=== PATIENT | male | born 1935 ===

== ENCOUNTER 2019-06-08 11:28 | Observation (INO) ==
--- NOTE | 2019-05-25 16:38 | PAT Medication Instructions ---
Medication Instructions Date of Service May 25, 2019 Home Medications Medications digoxin 125 mcg (0.125 mg) tablet 125 mcg PO QPM isosorbide dinitrate 30 mg tablet 30 mg PO QAM losartan 100 mg tablet 100 mg PO QAM lutein 20 mg tablet 20 mg PO QAM nitroglycerin 0.4 mg sublingual tablet 0.4 mg SL Q5M PRN rosuvastatin 5 mg sprinkle capsule 5 mg PO Q OTHER DAY vitamins A,C,J-kafu-arnugf 14,320 unit-226 mg-200 unit capsule 1 cap PO BID warfarin 5 mg tablet 5 mg PO UD finasteride 5 mg PO QAM metoprolol tartrate 50 mg PO BID Continue as directed rosuvastatin 5 mg sprinkle capsule 5 mg PO Q OTHER DAY nitroglycerin 0.4 mg sublingual tablet 0.4 mg SL Q5M PRN ASK your prescriber and surgeon warfarin 5 mg tablet 5 mg PO UD STOP taking 2 weeks before surgery vitamins A,C,Z-zcwh-umgmhr 14,320 unit-226 mg-200 unit capsule 1 cap PO BID lutein 20 mg tablet 20 mg PO QAM DO NOT take the morning of surgery losartan 100 mg tablet 100 mg PO QAM Take morning of surgery With a small sip of water, OTHERWISE NOTHING TO EAT OR DRINK AFTER MIDNIGHT: metoprolol tartrate 50 mg PO BID finasteride 5 mg PO QAM isosorbide dinitrate 30 mg tablet 30 mg PO QAM Take evening before surgery metoprolol tartrate 50 mg PO BID digoxin 125 mcg (0.125 mg) tablet 125 mcg PO QPM Other Notes If you have any questions please call us at [phone] or [phone] or [phone] or [phone]
--- NOTE | 2019-05-26 12:24 | Anesthesiology Consultation ---
Date of Service May 26, 2019 Assessment & Plan (1) Encounter for pre-operative examination: Chart Review Chart Review: Acceptable Risk for Surgery (pending cardio clearance and stress test ) and Patient seen in Pre Admission Testing Patient scheduled for stress test 05/27/19. Will get results and obtain cardio clearance (pt seen by cardio 05/19/19) prior to surgery Teaching & Discussion Pre-Anesthesia Teaching/Discussion Notes: Instructed NPO after midnight before surgery,except medications with 15 cc of water. Medication instructions provided according to the PAT guidelines. History Surgery Operation Date: 06/08/19 07:15 Proposed Procedures p Transurethral Resection of the Prostate - Jonatan Alonso MD Height/Weight Height: 5 ft 6 in Weight: 83.6 kg Allergies Allergy/AdvReac Type Severity Reaction Status Date / Time No Known Allergies Allergy Verified 05/12/19 15:33 Medications Home Medications Medication Instructions Recorded Confirmed Last Taken digoxin 125 mcg (0.125 mg) tablet 125 mcg PO QPM 05/08/19 05/12/19 Unknown isosorbide dinitrate 30 mg tablet 30 mg PO QAM 05/08/19 05/12/19 Unknown losartan 100 mg tablet 100 mg PO QAM 05/08/19 05/12/19 Unknown lutein 20 mg tablet 20 mg PO QAM 05/08/19 05/12/19 Unknown nitroglycerin 0.4 mg sublingual 0.4 mg SL Q5M PRN 05/08/19 05/12/19 Unknown tablet rosuvastatin 5 mg sprinkle capsule 5 mg PO Q OTHER DAY 05/08/19 05/12/19 Unknown vitamins A,C,N-xcqk-hqeeyg 14,320 1 cap PO BID 05/08/19 05/12/19 Unknown unit-226 mg-200 unit capsule warfarin 5 mg tablet 5 mg PO UD 05/08/19 05/12/19 Unknown finasteride 5 mg PO QAM 05/12/19 05/12/19 Unknown metoprolol tartrate 50 mg PO BID 05/12/19 05/12/19 Unknown Past Medical History Medical History (Updated 05/26/19 @ 12:43 by Annette Valdez PA-C) Atrial fibrillation DX 2007 - ON WARFARIN - FOLLOWS W/ DR. NGUYEN - STABLE BPH (benign prostatic hyperplasia) Chronic back pain [place] (hard of hearing) Hyperlipidemia Hypertension On anticoagulant therapy Osteoarthritis Poor historian Exercise / Class Metabolic Activity III < 4 Walking/Shop/Light housework (one flight of stairs - mild SOB, no chest pain) Past Surgical History Surgical History History of ankle surgery LEFT History of cardiac cath YEARS AGO - [facility] - NO STENTS History of cataract surgery History of colonoscopy History of hernia repair History of left knee surgery History of surgery on left wrist History of surgery on right wrist History of tooth extraction History of transurethral resection of prostate Past Anesthesia History No Hx of Anesthesia Complications and No Family Hx of Anesthesia Complications History of PONV No Hx of PONV and No Hx of Motion Sickness Social History Smoking Status: Never smoker Do You Dip or Chew Tobacco: No Hx Alcohol Use: No Hx Substance Use: No substance use type: does not use Review of Systems Mild CARRILLO- stable and controlled Mild snoring - no witnessed apnea Patient denies chest pain, shortness of breath at rest, reflux, cough, wheezing, palpitations. No hx of seizures, stroke, [place]. No hx of blood clots or blood transfusions No recent steroid use Physical Exam Vital Signs VITALS BP 175/92 P 62 TEMP 98.0 SP02 94% RESP 16 Constitutional no acute distress ENMT Mouth: no TMJ clicking Thyromental Distance: > or= 3.5 Finger Breadths (3.5) Mallampati Class: III Partial top denture Bottom molars missing Neck + limited neck extension (moderately ) Respiratory normal respiratory effort; no respiratory distress Auscultation: lungs clear to auscultation bilaterally; no wheezes Cardiovascular Heart Sounds: no murmur Vessels: no carotid bruit Irregularly irregular Musculoskeletal Spine: no pain with cervical ROM Neurologic moves all extremities Mild 1-2+ edema to bilateral LEs L>R (chronic for patient and improved per patient) Psychiatric Orientation: alert Testing Laboratory Results 05/26/19 12:32 05/26/19 12:32 Urine Color Dark Yellow 05/26/19 12:32 Urine Appearance Clear (Clear) 05/26/19 12:32 Urine pH 7.0 (4.5-7.5) 05/26/19 12:32 Ur Specific [place] 1.019 (1.000-1.030) 05/26/19 12:32 Urine Protein 1+ (Negative) H 02/11/20 12:32 Urine Glucose (UA) Negative (Negative) 05/26/19 12:32 Urine Ketones Negative (Negative) 05/26/19 12:32 Urine Nitrite Negative (Negative) 05/26/19 12:32 Ur Leukocyte Esterase Negative (Negative) 05/26/19 12:32 Urine WBC (Auto) 0 /hpf (0-5) 05/26/19 12:32 Urine RBC (Auto) 0-4 /hpf (0-4) 05/26/19 12:32 U Hyaline Cast (Auto) 1-5 /lpf (0-5) 05/26/19 12:32 U Epithel Cells (Auto) 5-10 /lpf (0-5) H 05/26/19 12:32 Urine Bacteria (Auto) Negative (Negative) 05/26/19 12:32 Electrocardiogram Date: 05/19/19 Findings: + AFIB @ (48) Atrial fibrillation with slow ventricular response. Rightward axis. Incomplete right bundle branch block. Chest X-Ray Date: 05/26/19 Findings: + NAD Cardiomegaly without overt pulmonary edema. Blunting of the costophrenic angles may reflect small effusions versus atelectasis/scarring. Calcified plaque of the thoracic aortic arch
--- NOTE | 2019-05-26 13:04 | XRay Report ---
XR chest Pre-admission PA/Lat HISTORY: 83 years-old Male pat preoperative exam. No acute chest complaints COMPARISON: None TECHNIQUE: PA and lateral views of the chest FINDINGS: Cardiac silhouette is enlarged, unchanged. Calcified plaque of the thoracic aortic arch. No pneumotho rax or overt pulmonary edema. Costophrenic angle blunting with mild bibasilar densities suggestive of atelectasis or scarring. Degenerative changes of the shoulders and spine with demineralized appearan ce the bones. Multiple age-indeterminate likely remote vertebral compression deformities. IMPRESSION: 1. Cardiomegaly without overt pulmonary edema. 2. Blunting of the costophrenic angles may reflect small effusions versus atelectasis/scarring. ACT 112: Negative or not required by law. The above report was generated using voice recognition software. It may contain grammatical, syntax o r spelling errors. Electronically signed by: Rodrigo Danielson M.D. 05/26/2019 1:03 PM
[2019-05-26 13:18] LABS: Basophils # (auto) 0.03 K/uL (0-0.2); Basophils % (auto) 0.5 %; Eosinophils # (auto) 0.06 K/uL (0-0.5); Eosinophils % (auto) 1.1 %; Hematocrit (blood only) 42.9 % (42-52); Hemoglobin 14.4 g/dL (14.0-18.0); Immature Granulocytes # (auto) 0.01 K/uL (0.00-0.02); Immature Granulocytes % (auto) 0.2 %; Lymphocytes # (auto) 1.34 K/uL (1.2-3.4); Lymphocytes % (auto) 23.5 %; Mean Corpuscular Hemoglobin 33.3 pg (25-34); Mean Corpuscular Hgb Conc 33.6 g/dL (32-36); Mean Corpuscular Volume 99.3 fL (80-100); Mean Platelet Volume 10.9 fL (7.4-10.4); Monocytes # (auto) 0.78 K/uL (0.11-0.59); Monocytes % (auto) 13.7 %; Neutrophils # (auto) 3.48 K/uL (1.4-6.5); Platelet Count 123 K/uL (130-400); RDW Coefficient of Variation 14.1 % (11.5-14.5); RDW Standard Deviation 50.4 fL (36.4-46.3); Red Blood Count 4.32 M/uL (4.7-6.1)
[2019-05-26 13:36] LABS: Appearance Urine Clear (Clear); Bacteria Urine Automated Negative (Negative); Bilirubin Urine Negative (Negative); Blood Urine Negative (Negative); Color Urine Dark Yellow; Glucose Urine UA Negative (Negative); Ketones Urine Negative (Negative); Leukocyte Esterase Urine Negative (Negative); Nitrite Urine Negative (Negative); Protein Urine 1+ (Negative); RBC Urine Automated 0-4 /hpf (0-4); Specific Gravity Urine 1.019 (1.000-1.030); Urobilinogen Urine Negative (Negative); WBC Urine Automated 0 /hpf (0-5)
[2019-05-26 15:09] LABS: BUN Creatinine Ratio 20.8 (10-20); Calcium 8.9 mg/dl (8.5-10.1); Creatinine Clr Calc Pharmacy 61.9 ml/min; Est GFR (African American) 86.7; Est GFR (Non-African American) 74.8; Potassium 4.5 mmol/L (3.5-5.1)
[~2019-06-08 11:28] MED LIST: CIPROFLOXACIN 400 MG/200 ML BAG IV SCH; LR 15ML/HR IV SCH
--- NOTE | 2019-06-08 12:25 | History & Physical Bridge Note ---
Date of Service June 08, 2019 History & Physical Bridge Note I have examined the patient, reviewed the History & Physical and in the interval since the performance of the History & Physical I have noted the following changes of clinical significance: no changes noted
--- NOTE | 2019-06-08 12:42 | History & Physical Report ---
Date of Service June 08, 2019 Assessment & Plan (1) Benign localized prostatic hyperplasia with lower urinary tract symptoms (LUTS): Plan for cystoscopy and TURP 23-hour observation stay History of Present Illness Primary Care Provider: Felipe Branham DO Longstanding voiding dysfunction as well as a cardiac history We have discussed medication management in the perioperative setting with his cardiology teamhe is off anticoagulation now and will be transitioning to Eliquis in the postoperative period Allergies Allergy/AdvReac Type Severity Reaction Status Date / Time No Known Allergies Allergy Verified 06/08/19 12:12 Home Medications Home Medications Medication Instructions Recorded Confirmed Type digoxin 125 mcg (0.125 mg) tablet 125 mcg PO QPM 05/08/19 06/08/19 History isosorbide dinitrate 30 mg tablet 30 mg PO QAM 05/08/19 06/08/19 History losartan 100 mg tablet 100 mg PO QAM 05/08/19 06/08/19 History lutein 20 mg tablet 20 mg PO QAM 05/08/19 06/08/19 History nitroglycerin 0.4 mg sublingual 0.4 mg SL Q5M PRN 05/08/19 05/12/19 History tablet rosuvastatin 5 mg sprinkle capsule 5 mg PO Q OTHER DAY 05/08/19 06/08/19 History vitamins A,C,K-bdfg-otgowm 14,320 1 cap PO BID 05/08/19 06/08/19 History unit-226 mg-200 unit capsule warfarin 5 mg tablet 5 mg PO UD 05/08/19 06/08/19 History finasteride 5 mg PO QAM 05/12/19 06/08/19 History metoprolol tartrate 50 mg PO BID 05/12/19 06/08/19 History Past Med/Surg History Medical History Atrial fibrillation DX 2007 - ON WARFARIN - FOLLOWS W/ DR. NGUYEN - STABLE BPH (benign prostatic hyperplasia) Chronic back pain [place] (hard of hearing) Hyperlipidemia Hypertension On anticoagulant therapy Osteoarthritis Poor historian Surgical History History of ankle surgery LEFT History of cardiac cath YEARS AGO - [facility] - NO STENTS History of cataract surgery History of colonoscopy History of hernia repair History of left knee surgery History of surgery on left wrist History of surgery on right wrist History of tooth extraction History of transurethral resection of prostate Family History Grandmother (Paternal) Family history of diabetes mellitus Other No family history of adverse response to anesthesia Social History Preferred Language: Romansh Communication Ability: Effective Patient Intake Representative Required: No Beliefs That Will Affect Care: None Current Living Situation: Spouse Other Information That Helps Us Care for You: No Feels Safe at Home: Yes Safety Concerns: Feels Safe At This Time Smoking Status: Never smoker Do You Dip or Chew Tobacco: No ; Second Hand Exposure: Yes (PREVIOUS EXPOSURE IN THE WORK PLACE) ; Hx Alcohol Use: No Hx Substance Use: No Physical Exam Constitutional: well developed and well nourished Neck: neck nontender Respiratory: normal respiratory effort; no respiratory distress and does not use accessory muscles Cardiovascular: Rate/Rhythm: regular rate Vessels: radial pulses present Extremities: no edema Gastrointestinal (Abdomen): Inspection/Auscultation: abdomen normal to inspection Percussion/Palpation: abdomen soft; abdomen nontender and no guarding Musculoskeletal: Head/Neck/Chest: normocephalic and head atraumatic Extremities: extremities normal to inspection Skin: no rashes and no lesions Trauma: no evidence of skin trauma Neurologic: awake; not obtunded Speech / Cognition: normal speech Mo tor/Sensory: no tremor Psychiatric: Orientation: alert and oriented x 3 Genitourinary: no CVA tenderness Lymphatic: no lymphadenopathy Results & Data Vital Signs (Past 12 Hours) Vital Signs Temp Pulse Resp BP Pulse Ox 06/08/19 12:27 36.4 C L 72 18 179/91 H 99
[2019-06-08 12:56] LABS: INR 1.1 (0.9-1.1); Partial Thromboplastin Time 26.5 Seconds (21.0-31.0); Prothrombin Time 11.5 Seconds (9.0-12.0)
[2019-06-08] MEDS ORDERED: fentaNYL citrate 100 MCG/2 ML VIAL ONE (13:03)
[2019-06-08] MEDS ORDERED: ONDANSETRON INJ 2 MG/ML 2 ML VIAL ONE (13:03)
[2019-06-08] MEDS ORDERED: PROPOFOL IV EMULSION 10 MG/ML 20 ML VIAL IV ONE (13:03)
[2019-06-08] MEDS ORDERED: ePHEDrine sulfate 50 MG/ML SYR ONE (13:03)
[2019-06-08] MEDS ORDERED: DEXAMETHASONE SOD INJ 4 MG/ML VIAL ONE (13:03)
[2019-06-08] MEDS ORDERED: LIDOCAINE HCL 2% 2 ML VIAL/AMP(20MG/ML) INFIL ONE (13:03)
[2019-06-08] MEDS ORDERED: PHENYLEPHRINE 100MCG/ML 5ML SYR ONE (13:03)
[2019-06-08] MEDS ORDERED: fentaNYL citrate 100 MCG/2 ML VIAL IV PRN (13:44)
[2019-06-08] MEDS ORDERED: ONDANSETRON INJ 2 MG/ML 2 ML VIAL IV PRN ×2 (13:44→15:50)
[2019-06-08] MEDS ORDERED: ATROPINE SULFATE 0.1 MG/ML 10ML SYR IV PRN (13:44)
[2019-06-08] MEDS ORDERED: ePHEDrine sulfate 50 MG/ML AMP IV PRN (13:44)
--- NOTE | 2019-06-08 14:54 | Operative Report ---
PG Post Operative Report Pre & Post Diagnosis Operation Date: 06/08/19 13:50 Pre-Op Diagnosis: Benign Prostate Hyperplasia Post-Op Diagnosis: Benign Prostate Hyperplasia I identified the patient and participated in the time-out.: Yes Procedure Operation Date: 06/08/19 13:50 Actual Procedures p Cystoscopy, Transurethral Resection of the Prostate(Not Applicable) - Jonatan Alonso MD Surgeon Tyson Alonso MD Journal Box Inspector none Estimated Blood Loss 5 Findings Consistent with Post-Op Diagnosis Specimens none Description of Procedure The patient was identified in the preoperative holding area, appropriate informed consents were reviewed and completed and the patient was transferred to the operative suite. Upon arrival, appropriate antibiotics and anesthesia were administered and the patient was placed in dorsal lithotomy position and prepped and draped in sterile fashion. To begin the case I passed a 27 [place] resectoscope per urethra utilizing a 30 degree lens and visual obturator. Inspection revealed no evidence of stricture disease. His prostate was notably enlarged with significant lateral lobe hypertrophy and an irregular contour secondary to a prior greenlight laser photo vaporization. Bladder was inspected and found to be healthy without evidence of mucosal disease. Ureteral orifices were identified in orthotopic position. Following my inspection exchanged visual flame cutting machine operator helper for resecting element using a button electrode. I began by vaporizing the left lateral lobe followed by the r ight lateral lobe. He had some redundant apical tissue which was vaporized at the last stage of the procedure. At the conclusion of the case the prostate is been open appropriately and with a smooth contour. Hemostasis was outstanding. 22 [place]ger catheter was inserted without difficulty. He was extubated and taken to the PACU in stable condition. There were no complications. I attest to the content of the Intraoperative Record and any orders documented therein. Any exceptions are noted below.
--- NOTE | 2019-06-08 15:13 | Anesthesiology Progress Note ---
Date of Service June 08, 2019 Anesthesia Post Procedure Vital Signs Vital Signs: Temp Pulse Pulse Resp BP Pulse Ox 06/08/19 15:10 66 18 145/93 H 95 06/08/19 15:00 64 18 142/72 H 100 06/08/19 14:50 87 18 140/63 100 06/08/19 14:44 36.9 C 62 18 113/63 100 06/08/19 12:27 36.4 C L 72 18 179/91 H 99 Transfer of Care Handoff Completed per policy Notes Mental Status: alert / awake / arousable Patient Amnestic to Procedure: Yes Nausea / Vomiting: adequately controlled Pain: adequately controlled Airway Patency, RR, SpO2: stable & adequate BP & HR: stable & adequate Hydration State: stable & adequate Anesthetic Complications: no major complications apparent
[2019-06-08 15:26] LABS: Basophils # (auto) 0.02 K/uL (0-0.2); Basophils % (auto) 0.4 %; Eosinophils # (auto) 0.07 K/uL (0-0.5); Eosinophils % (auto) 1.5 %; Hematocrit (blood only) 39.7 % (42-52); Hemoglobin 13.5 g/dL (14.0-18.0); Immature Granulocytes # (auto) 0.01 K/uL (0.00-0.02); Immature Granulocytes % (auto) 0.2 %; Lymphocytes # (auto) 0.84 K/uL (1.2-3.4); Mean Corpuscular Hemoglobin 33.6 pg (25-34); Mean Corpuscular Volume 98.8 fL (80-100); Monocytes # (auto) 0.36 K/uL (0.11-0.59); Monocytes % (auto) 7.7 %; Neutrophils # (auto) 3.37 K/uL (1.4-6.5); Neutrophils % (auto) 72.2 %; Platelet Count 161 K/uL (130-400); RDW Coefficient of Variation 13.8 % (11.5-14.5); Red Blood Count 4.02 M/uL (4.7-6.1); White Blood Count 4.67 K/uL (4.8-10.8)
[2019-06-08 15:43] LABS: BUN Creatinine Ratio 22.4 (10-20); Calcium 8.4 mg/dl (8.5-10.1); Creatinine Clr Calc Pharmacy 60.3 ml/min; Est GFR (African American) 85.6; Est GFR (Non-African American) 73.8; Potassium 4.4 mmol/L (3.5-5.1)
[2019-06-08] MEDS ORDERED: NITROGLYCERIN SL 0.4 MG/TAB TAB SL PRN (15:50)
[2019-06-08] MEDS ORDERED: ACETAMINOPHEN W/CODEINE #3 1 TAB PO PRN (15:50)
[2019-06-08] MEDS ORDERED: ACETAMINOPHEN 325 MG TAB PO PRN (15:50)
[2019-06-08] MEDS: LACTATED RINGER'S 1,000 ML IV SCH (16:01)
[2019-06-08] MEDS ORDERED: DIGOXIN 0.125 MG TAB PO SCH (21:00)
[2019-06-08] MEDS: CEROVITE ADV FORMULA TAB PO SCH (21:15)
[2019-06-08] MEDS: METOPROLOL TARTRATE 50 MG TAB PO SCH (21:16)
[2019-06-09] MEDS: CIPROFLOXACIN / D5W 200 MG/100 ML BAG IV SCH ×2 (01:29→14:16)
[2019-06-09] MEDS: LACTATED RINGER'S 1,000 ML IV SCH (04:30)
[2019-06-09 06:39] LABS: Basophils # (auto) 0.01 K/uL (0-0.2); Basophils % (auto) 0.1 %; Hemoglobin 13.4 g/dL (14.0-18.0); Immature Granulocytes # (auto) 0.02 K/uL (0.00-0.02); Immature Granulocytes % (auto) 0.2 %; Lymphocytes # (auto) 1.05 K/uL (1.2-3.4); Lymphocytes % (auto) 11.3 %; Mean Corpuscular Hemoglobin 33.1 pg (25-34); Mean Corpuscular Hgb Conc 34.4 g/dL (32-36); Mean Corpuscular Volume 96.3 fL (80-100); Mean Platelet Volume 8.8 fL (7.4-10.4); Monocytes # (auto) 0.64 K/uL (0.11-0.59); Monocytes % (auto) 6.9 %; Neutrophils % (auto) 81.5 %; Platelet Count 158 K/uL (130-400); RDW Coefficient of Variation 13.4 % (11.5-14.5); RDW Standard Deviation 46.9 fL (36.4-46.3); Red Blood Count 4.05 M/uL (4.7-6.1); White Blood Count 9.32 K/uL (4.8-10.8)
[2019-06-09 07:08] LABS: BUN Creatinine Ratio 26.2 (10-20); Calcium 8.8 mg/dl (8.5-10.1); Creatinine Clr Calc Pharmacy 65.7 ml/min; Est GFR (African American) 93.8; Est GFR (Non-African American) 80.9; Potassium 4.3 mmol/L (3.5-5.1)
--- NOTE | 2019-06-09 07:52 | Anesthesiology Progress Note ---
Date of Service June 09, 2019 Anesthesia Post Procedure Vital Signs Vital Signs: Temp Pulse Pulse Pulse Resp BP Pulse Ox 06/09/19 07:25 72 06/09/19 04:32 37.0 C 70 20 151/78 H 94 06/08/19 23:21 36.7 C 64 20 148/78 H 93 06/08/19 21:15 75 06/08/19 17:48 64 06/08/19 15:51 36.3 C L 68 18 154/92 H 97 06/08/19 15:20 36.6 C 62 18 150/87 H 97 06/08/19 15:10 66 18 145/93 H 95 06/08/19 15:00 64 18 142/72 H 100 06/08/19 14:50 87 18 140/63 100 06/08/19 14:44 36.9 C 62 18 113/63 100 06/08/19 12:27 36.4 C L 72 18 179/91 H 99 Notes Mental Status: alert / awake / arousable and participated in evaluation Patient Amnestic to Procedure: Yes Nausea / Vomiting: adequately controlled Pain: adequately controlled Airway Patency, RR, SpO2: stable & adequate BP & HR: stable & adequate Hydration State: stable & adequate Anesthetic Complications: no major complications apparent and Pt Satisfied with anesthetic care
[2019-06-09] MEDS: METOPROLOL TARTRATE 50 MG TAB PO SCH (08:02)
[2019-06-09] MEDS: CEROVITE ADV FORMULA TAB PO SCH (08:02)
[2019-06-09] MEDS ORDERED: NON-FORMULARY MEDICATION (Lutein 20 MG) PO SCH (09:00)
[2019-06-09] MEDS ORDERED: FINASTERIDE 5 MG TAB PO SCH (09:00)
[2019-06-09] MEDS ORDERED: LOSARTAN POTASSIUM 50 MG TAB PO SCH (09:00)
[2019-06-09] MEDS ORDERED: ROSUVASTATIN CALCIUM 5 MG TAB PO SCH (09:00)
[2019-06-09] MEDS ORDERED: ISOSORBIDE MONO EXTENDED REL 30 MG TABCR PO SCH (09:00)
--- NOTE | 2019-06-09 13:00 | Urology Progress Note ---
Date of Service June 09, 2019 Assessment & Plan (1) Benign localized prostatic hyperplasia with lower urinary tract symptoms (LUTS): Postop day #1 status post TURP Progressing appropriately Voiding trial now Discharge home presuming he voids adequately He has been on Coumadin leading up to surgery, he will be transitioning from Coumadin to Eliquis after surgery I think it is reasonable to resume these medications on or Saturday Subjective Did very well overnight No significant troubles His urine has been clearing appropriately Physical Exam Physical Exam: Mildly bloody urine within the tubing Healthy-appearing overall Still with atrial fibrillation Abdomen soft Results & Data Vital Signs (Past 12 Hours) Vital Signs Temp Pulse Pulse Resp BP Pulse Ox 06/09/19 11:10 36.6 C 63 16 118/68 94 06/09/19 07:25 36.7 C 72 69 18 159/89 H 92 06/09/19 04:32 37.0 C 70 20 151/78 H 94 PG Care Time/CCT Total # of Minutes Spent Total Time Spent with Patient: Total time spent is greater than 50% in coordination of care (as documented) at patient's floor/unit and/or counseling patient: Coding Level of Care Code None Diagnoses Benign localized prostatic hyperplasia with lower urinary tract symptoms (LUTS) N40.1
--- NOTE | 2019-06-11 08:28 | Discharge Summary ---
Date of Service June 11, 2019 Admission HPI Per Admitting Provider Voiding dysfunctionwill be having a TURP Principal Diagnosis BPH with LUTS Discharge Data Allergies Allergy/AdvReac Type Severity Reaction Status Date / Time No Known Allergies Allergy Verified 06/08/19 12:12 Procedures Performed Operation Date: 06/08/19 13:50 Actual Procedures p Cystoscopy, Transurethral Resection of the Prostate(Not Applicable) - Jonatan Alonso MD Hospital Course (1) Benign localized prostatic hyperplasia with lower urinary tract symptoms (LUTS): Admitted for TURP - tolerated procedure very well - progressed appropriately overnight - passed a voiding trial on the morning of POD#1 - d/c home in stable condition Total Time Total Time Spent Total Time Spent (In Minutes): 15 Total Time Includes: Examination of the Patient and Discharge Planning Discharge Plan Discharge Items Patient Disposition: Home - Self-Care Reason For Visit: [facility] Discharge Diagnosis: Benign Prostatic Hyperplasia Condition on Discharge: Good Activity: Per Instructions section Lifting: No more than 25 pounds Bathing Comment: May shower in one day. No tub baths until follow-up appointment. Sexual Activity: Wait until after follow-up appointment Exercise/Sports: Wait until after follow-up appointment Driving/Machine Use: Do not drive while taking narcotic pain medication Non-emergency contact: Surgeon and Urologist Call non-emergency contact if: you have any medication questions, your pain is not controlled and your temperature is above 101.5 Follow-up/Referrals: Jonatan Alonso MD [Physician] - 07/02/19 11:45 am Felipe Branham DO [Primary Care Provider] - () Diet: Regular Addtl Attending Provider Instructions: Please take all medications as prescribed and keep all follow-ups as scheduled. Please call our office at [phone] with any questions, concerns or need to reschedule appointments for any reason. We are happy to assist you. Tips for your recovery at home: Dont be alarmed by brownish or reddish blood or clots in your urine. This is a result of the procedure. This may occur off and on for weeks to months after the procedure but should continue to improve. Drink plenty of fluids during the day (enough to keep your urine very light colored). This will help keep a healthy flow of urine. Do not lift >25 lbs until your followup Avoid constipation. Please use a stool softener (Colace) for the first two weeks after your procedure Be sure to finish the antibiotics as prescribed. If you go home with a catheter, please wash tubing where it enters your body twice daily with mild soap (Dove or Dial). Once your catheter is removed, expect some blood in your urine and some burning when you urinate. You should have an appointment to have this removed, if you do not please call our office to arrange. You may start your Eliquis when your urine is clearing, likely or Saturday of this week. Continue care per your tunnel elastic operator chainstitch. When to call [facility] [place] [facility] [place] [phone]: Your urine contains heavy blood clots You are constantly leaking urine Fever of 101F or higher, chills, nausea, or vomiting Your pain is not relieved with medication Pending Studies at Discharge: No Stand-Alone Forms: My [employer], Smoking Cessation Medications and DC Order Prescriptions: New ciprofloxacin HCl 500 mg tablet 500 mg PO BID 3 Days Qty: 6 RF: 0 docusate sodium [Colace] 100 mg capsule 100 mg PO BID Qty: 60 RF: 0 tramadol 50 mg tablet 50 mg PO BID PRN (Reason: pain) Qty: 10 RF: 0 Continued digoxin 125 mcg (0.125 mg) tablet 125 mcg PO QPM RF: 0 rosuvastatin 5 mg capsule, sprinkle 5 mg PO Q OTHER DAY RF: 0 lutein 20 mg tablet 20 mg PO QAM RF: 0 PreserVision AREDS 14,320-226-200 fgxy-ud-qotc capsule 1 cap PO BID RF: 0 losartan 100 mg tablet 100 mg PO QAM RF: 0 nitroglycerin 0.4 mg tablet, sublingual 0.4 mg SL Q5M PRN (Reason: Chest Pain) RF: 0 metoprolol tartrate 50 mg Tablet 50 mg PO BID RF: 0 finasteride 5 mg tablet 5 mg PO QAM RF: 0 isosorbide mononitrate 30 mg tablet extended release 24 hr 30 mg PO DAILY RF: 0 Discontinued warfarin 5 mg tablet 5 mg PO UD RF: 0 Discharge Orders: Discharge Order (Routine); Ordered 06/09/19 Ordered By: Sheyla Hill Admission Data Admit Date/Time: 06/08/19 14:52 Attending Provider: Jonatan Alonso Admit Provider: Jonatan Alonso Primary Care Provider: Felipe Branham Other Interventions: Discharge Summary Assessment (RN) Last Done: 06/09/19 15:49 DC Date/Time DO NOT enter until pt leaves facility: 06/09/19 17:22 Coding Level of Care Code D/C Day Management <30 mins Diagnoses Benign localized prostatic hyperplasia with lower urinary tract symptoms (LUTS) N40.1
== END 2019-06-09 17:22 | disposition home or self-care (01) ==
LOC: 2N 11:28 → ASU 11:28